=== PATIENT | male | born 1955 | race Caucasian/White ===

== ENCOUNTER 2019-11-08 15:40 | Emergency (ER) | payer BC ==
--- NOTE | 2019-11-08 15:55 | EDM.PDOC ---
ED HPI GENERAL MEDICAL PROBLEM - General Chief Complaint: Lower Extremity Injury/Pain Stated Complaint: RIGHT KNEE INJURY Time Seen by Provider: 11/08/19 15:48 Source of Information: Reports: Patient, EMS History Limitations: Reports: No Limitations - History of Present Illness INITIAL COMMENTS - FREE TEXT/NARRATIVE: 64 YO WM presents to ER complaining right leg pain after slip and fall down 2 stairs. Pt reports his right leg went forward causing his knee to buckle. Pt reports landing on the ground but denies back pain or head injury. Pt reports no pain in left lower extremity. Pt was able to stand with assistance once the ambulance arrived. Pt denies neck/back discomfort, no pelvic pain, no chest or abdominal pain . Onset: Today Location: Reports: Lower Extremity, Right Quality: Reports: Ache Severity: Moderate Improves with: Reports: Rest Worsens with: Reports: Movement Associated Symptoms: Reports: No Other Symptoms Treatments [employer]GER: Reports: Splint(s) right leg Pain Score (Numeric/FACES): 2 - Related Data Allergies Allergy/AdvReac Type Severity Reaction Status Date / Time atorvastatin [From Lipitor] Allergy Drowsiness Verified 11/08/19 16:25 Review of Systems - Review of Systems Review Of Systems: See Below Constitutional: Reports: No Symptoms Eyes: Reports: No Symptoms Ears: Reports: No Symptoms Nose: Reports: No Symptoms Mouth/Throat: Reports: No Symptoms Respiratory: Reports: No Symptoms Cardiovascular: Reports: No Symptoms GI/Abdominal: Reports: No Symptoms Genitourinary: Reports: No Symptoms Musculoskeletal: Reports: Leg Pain Skin: Reports: No Symptoms Neurological: Reports: No Symptoms Psychiatric: Reports: No Symptoms ED EXAM, GENERAL - Physical Exam Exam: See Below Exam Limited By: No Limitations General Appearance: Alert, WD/WN, No Apparent Distress Eye Exam: Bilateral Eye: PERRL Head: Atraumatic, Normocephalic Neck: Normal Inspection, Supple, Non-Tender, Full Range of Motion Respiratory/Chest: No Respiratory Distress, Lungs Clear, Normal Breath Sounds, No Accessory Muscle Use, Chest Non-Tender Cardiovascular: Normal Peripheral Pulses, Regular Rate, Rhythm, No Edema, No Gallop, No JVD, No Murmur, No Rub GI/Abdominal: Normal Bowel Sounds, Soft, Non-Tender, No Organomegaly, No Distention, No Abnormal Bruit, No Mass Back Exam: Normal Inspection, Full Range of Motion, NT Extremities: Normal Capillary Refill, Leg Pain (Right distal femur pain without deformity. pain with AROM/PROM of right knee) Neurological: Alert, Oriented, CN II-XII Intact, Normal Cognition, Normal Gait, Normal Reflexes, No Motor/Sensory Deficits Psychiatric: Normal Affect, Normal Mood Skin Exam: Warm, Dry, Intact, Normal Color, No Rash Lymphatic: No Adenopathy ED TRAUMA EXTREMITY PROCEDURES - Splinting Right Lower Extremity Splint Site: right knee Pre-Procedure NV Status: Normal Post-Procedure NV Status: Normal Splint Material: Velcro Splint Design: Knee Immobilizer Applied & Form Fitted By: Provider Provider Post-Splint Application NV Check: NV Status Normal, Good Position Complications: No Course - Vital Signs Last Recorded V/S: Last Vital Signs Temp 36.4 C 11/08/19 15:45 Pulse 80 11/08/19 15:45 Resp 18 11/08/19 15:45 BP 143/56 H 11/08/19 15:45 Pulse Ox 95 11/08/19 15:45 - Orders/Labs/Meds Orders: Active Orders 24 hr Category Date Time Status Femur Min 2V Rt [CR] Stat Exams 11/08/19 15:52 Ordered - Radiology Interpretation Free Text/Narrative:: right femur- NAD Right knee- joint effusion with possible suprepatellar avulsion fracture vs osteochondral bodies Departure - Departure Time of Disposition: 17:13 Disposition: Home, Self-Care 01 Condition: Good Clinical Impression: Effusion, right knee - Discharge Information Instructions: Knee Effusion, [id number], Crutch Use, Adult, [id number] Referrals: Bernie Lan MD [Primary Care Provider] - Forms: ED Department Discharge Additional Instructions: 1. discharge home 2. recommend MRI of right knee after ortho evaluation 3. rest/ice/elevation/crutches 4. Motrin 600mg every 6 hours x 5 days 5. return to ER for worsening symptoms Sepsis Event Note - Focused Exam Vital Signs: Vital Signs Temp Pulse Resp BP Pulse Ox 11/08/19 15:45 36.4 C 80 18 143/56 H 95 Date Exam was Performed: 11/08/19 Time Exam was Performed: 17:09 - My Orders Last 24 Hours: My Active Orders 11/08/19 15:52 Femur Min 2V Rt [CR] Stat - Assessment/Plan Last 24 Hours: My Active Orders 11/08/19 15:52 Femur Min 2V Rt [CR] Stat Assessment:: 1. right knee effusion 2. possible suprapatellar avulsion fracture Plan: 1. discharge home 2. recommend MRI of right knee after ortho evaluation 3. rest/ice/elevation/crutches 4. Motrin 600mg every 6 hours x 5 days 5. return to ER for worsening symptoms
--- NOTE | 2019-11-08 17:00 | CR ---
[id number] RAD/RAD Knee Right 3V; [id number] RAD/RAD Femur Right 2V Exam: RAD Femur Right 2V, RAD Knee Right 3V Indication:PAIN. Comparison: No prior imaging for comparison. Discussion: Femur is intact. No lesion identified in the femur. Femoroacetabular articulation demonstrates changes of osteoporosis. Evaluation of the knee joint demonstrates a small joint effusion. Mild changes of osteoarthritis in the patellofemoral compartment. Lateral view demonstrates 2 closely approximated mineralized structures in the suprapatellar recess of the knee joint measuring 8 and 4 mm. Findings are nonspecific and possibly either intra-articular osteochondral bodies in the setting of osteoarthritis versus acutely avulsed fracture fragments secondary to quadriceps tendon injury. Correlate with site of pain. Additionally, there is thickening of the prepatellar and superficial infrapatellar soft tissues which can be seen with contusion in the setting of fall. Impression: Intact femur. Prepatellar and superficial infrapatellar soft tissue thickening, likely contusion in the setting of fall with a joint effusion and other findings described above. Ángel Black MD 11/08/19 [id number] Thank you for allowing us to participate in the care of your patient.
[2019-11-08] MEDS ORDERED: Ketorolac 60 MG/2 ML SDV IM ONE (17:15)
== END 2019-11-08 18:00 | disposition home or self-care (01) ==
LOC: KA.ED 15:40
DX: M25.461 Effusion, right knee (principal); Z88.8 Allergy status to other drugs, medicaments and biological substances; W10.9XXA Fall (on) (from) unspecified stairs and steps, initial encounter
CPT/HCPCS: 73562-RT; 82962; 96372; 99283-25; J1885

== ENCOUNTER 2020-02-18 05:08 | Emergency (ER) | payer BC ==
[2020-02-18] MEDS: Ondansetron 4 MG/2 ML SDV IVPUSH ONE (05:43)
--- NOTE | 2020-02-18 06:08 | EDM.PDOC ---
ED HPI GENERAL MEDICAL PROBLEM - General Chief Complaint: General Stated Complaint: RUQ Time Seen by Provider: 02/18/20 05:30 Source of Information: Reports: Patient History Limitations: Reports: No Limitations - History of Present Illness INITIAL COMMENTS - FREE TEXT/NARRATIVE: 64-year-old white male presents emergency room with complaints of right upper quadrant pain. His symptoms began yesterday at approximately 8 AM and have been consistent over the last 24 hours. He describes the pain as a ache with waxing and waning type symptoms but been constant for the last a day. He's been experiencing some nausea no vomiting. He notices that it's painful to touch in right upper quadrant and has a little bit of rib pain to his right side. He denies significant flank pain. He has had a kidney stone in the past and feels that this is different. He did denies colicky type pain. He is not had a bowel movement last 48 hours. Food does not seem to change his symptoms. He still has his gallbladder but has had an appendectomy about 15 years ago. He is diabetic. He has no chest pain shortness of breath, no pleuritic pain. No cough. No fever or chills. Onset: Gradual Onset Date: 02/17/20 Onset Time: 08:00 Duration: Hour(s): Location: Reports: Abdomen Quality: Reports: Ache Severity: Moderate Improves with: Reports: None Worsens with: Reports: None Associated Symptoms: Reports: Nausea/Vomiting (nausea). Denies: Chest Pain, Diaphoresis, Fever/Chills, Shortness of Breath, Weakness Right Upper Abdomen Pain Score (Numeric/FACES): 7 - Related Data Allergies Allergy/AdvReac Type Severity Reaction Status Date / Time atorvastatin [From Lipitor] AdvReac Drowsiness Verified 02/18/20 06:17 Home Meds: Home Meds Citalopram [Citalopram HBr] 20 mg PO DAILY 11/08/19 [History] Insulin Aspart [NovoLOG] 0 unit SUBCUT WITHMEALSANDBED 11/08/19 [History] amLODIPine [Norvasc] 10 mg PO BID 11/08/19 [History] metFORMIN [Glucophage XR] 1,000 mg PO BIDMEALS 11/08/19 [History] Furosemide 20 mg PO QAM 02/18/20 [History] Insulin Degludec [Tresiba Flextouch U-200] 70 units SQ BEDTIME 02/18/20 [History ] Lisinopril/Hydrochlorothiazide [Lisinopril-Hctz 20-25 mg Tab] 2 tab PO QAM 02/17 [History] Ozempic 1 injection SQ WEEKLY 02/18/20 [History] Tamsulosin [Flomax] 0.4 mg PO BEDTIME #14 cap.er 02/18/20 [Rx] allopurinoL [Zyloprim] 100 mg PO DAILY 02/18/20 [History] valACYclovir HCl [valACYclovir] 1 tab PO ASDIRECTED PRN 02/18/20 [History] Past Medical History Cardiovascular History: Reports: Hypertension Psychiatric History: Reports: Depression Endocrine/Metabolic History: Reports: Diabetes, Type II, IDDM, Obesity/BMI 30+ - Past Surgical History GI Surgical History: Reports: Appendectomy Musculoskeletal Surgical History: Reports: Hip Replacement, Shoulder Surgery Social & Family History - Family History Family Medical History: Noncontributory ED ROS GENERAL - Review of Systems Review Of Systems: Comprehensive ROS is negative, except as noted in HPI. ED EXAM, GENERAL - Physical Exam Exam: See Below Exam Limited By: No Limitations General Appearance: Alert, No Apparent Distress, Obese Ears: Hearing Grossly Normal Nose: Normal Inspection Throat/Mouth: Normal Inspection, Normal Voice, No Airway Compromise Head: Atraumatic, Normocephalic Neck: Normal Inspection Respiratory/Chest: No Respiratory Distress, Lungs Clear, Normal Breath Sounds Cardiovascular: Normal Peripheral Pulses, Regular Rate, Rhythm GI/Abdominal: Normal Bowel Sounds, Soft, Tender (Upper quadrant pain to palpation), Other (Abdomen is obese). No: Distended, Guarding, Rebound Back Exam: Normal Inspection, CVA Tenderness (R). No: CVA Tenderness (L), Paraspinal Tenderness, Vertebral Tenderness Extremities: Normal Inspection, Normal Range of Motion Neurological: Alert, Oriented, No Motor/Sensory Deficits Psychiatric: Normal Affect, Normal Mood Skin Exam: Warm, Dry, Intact, Normal Color, No Rash Lymphatic: No Adenopathy Course - Vital Signs Last Recorded V/S: Last Vital Signs Temp 98.9 F 02/18/20 05:45 Pulse 69 02/18/20 05:45 Resp 16 02/18/20 05:45 BP 147/53 H 05/07/20 05:45 Pulse Ox 94 L 02/18/20 05:45 - Orders/Labs/Meds Orders: Active Orders 24 hr Category Date Time Status Sodium Chloride 0.9% [Normal Saline] 50 ml Med 02/18/20 07:30 Active IV ASDIRECTED Medication Orders Sodium Chloride (Normal Saline) 50 mls @ 200 mls/hr IV ASDIRECTED [facility] Last Admin: 02/18/20 07:33 Dose: 200 mls/hr Labs: Laboratory Tests 02/18/20 02/18/20 02/18/20 Range/Units 06:15 06:15 09:20 WBC 10.11 H (5.00-10.00) 10^3/uL RBC 4.85 (4.50-6.00) 10^6/uL Hgb 15.2 (13.0-17.0) g/dL Hct 43.7 (40.0-52.0) % MCV 90.1 (82.0-92.0) fL MCH 31.3 H (27.0-31.0) pg MCHC 34.8 (32.0-36.0) g/dL RDW 13.8 (11.5-14.5) % Plt Count 213 (150-400) 10^3/uL MPV 9.5 (7.4-10.4) fL Immature Gran % (Auto) 0.1 (0.0-5.0) % Neut % (Auto) 78.7 H (50.0-70.0) % Lymph % (Auto) 7.7 L (20.0-40.0) % Pike % (Auto) 13.1 H (2.0-8.0) % Eos % (Auto) 0.2 L (1.0-3.0) % Baso % (Auto) 0.2 (0.0-1.0) % Neut # (Auto) 7.96 H (2.50-7.00) 10^3/uL Lymph # (Auto) 0.78 L (1.00-4.00) 10^3/uL Pike # (Auto) 1.32 H (0.10-0.80) 10^3/uL Eos # (Auto) 0.02 L (0.10-0.30) 10^3/uL Baso # (Auto) 0.02 (0.00-0.10) 10^3/uL Immature Gran # (Auto) 0.01 (0.00-0.50) 10^3/uL Sodium 140 (136-145) mmol/L Potassium 3.2 L (3.3-5.3) mmol/L Chloride 104 (98-115) mmol/L Carbon Dioxide 25.4 (21.0-32.0) mmol/L Anion Gap 13.8 (5-15) mmol/L BUN 30 H (6-25) mg/dL Creatinine 1.16 (0.51-1.17) mg/dL Est Cr Clr Drug Dosing 70.61 mL/min Estimated GFR (MDRD) > 60 mL/min Glucose 171 H (75 - 99) mg/dL Calcium 9.1 (8.7-10.3) mg/dL Total Bilirubin 0.8 (0.2-1.0) mg/dL AST 12 L (15-37) U/L ALT 29 (12-78) U/L Alkaline Phosphatase 66 (46-116) IU/L Total Protein 6.7 (6.4-8.2) g/dL Albumin 3.67 (3.00-4.80) g/dL Amylase 31 (25-125) U/L Lipase 67 L (73-393) U/L Specimen Type Urincc Urine Color Yellow (YELLOW) Urine Appearance Clear (CLEAR) Urine pH 5.5 (5.0-9.0) Ur Specific [place] 1.020 (1.005-1.030) Urine Protein Negative (NEGATIVE) mg/dL Urine Glucose (UA) Negative (NEGATIVE) mg/dL Urine Ketones Negative (NEGATIVE) mg/dL Urine Occult Blood Small H (NEGATIVE) Urine Nitrite Negative (NEGATIVE) Urine Bilirubin Negative (NEGATIVE) Urine Urobilinogen 0.2 (0.2-1.0) E.U./dL Ur Leukocyte Esterase Negative (NEGATIVE) Urine RBC 10-20 H (0-5) /HPF Urine WBC 0-5 (0-5) /HPF Ur Epithelial Cells Occasional /LPF Urine Bacteria Rare (NONE TO FEW) /HPF Meds: Medications Generic Name Dose Route Start Last Admin Trade Name Freq PRN Reason Stop Dose Admin Sodium Chloride 50 mls @ 200 mls/hr 02/18/20 07:30 02/18/20 07:33 Normal Saline IV 200 mls/hr ASDIRECTED [facility] Administration Discontinued Medications Generic Name Dose Route Start Last Admin Trade Name Mayda PRN Reason Stop Dose Admin Hydromorphone HCl 1 mg 02/18/20 07:39 02/18/20 07:49 Dilaudid IVPUSH 02/18/20 07:40 1 mg ONETIME ONE Administration Iopamidol 100 ml 02/18/20 07:26 02/18/20 07:33 Isovue-370 (76%) IV 02/18/20 07:27 100 ml ONETIME ONE Administration Ondansetron HCl 4 mg 02/18/20 05:38 02/18/20 05:43 Zofran IVPUSH 02/18/20 05:39 4 mg ONETIME ONE Administration Tamsulosin HCl 0.4 mg 02/18/20 09:06 02/18/20 09:29 Flomax PO 02/18/20 09:07 0.4 mg ONETIME ONE Administration - Radiology Interpretation Free Text/Narrative:: CT abdomen pelvis with IV contrast Findings: Bases are clear. Liver, spleen, gallbladder, pancreas, adrenal glands are unremarkable 7 x 8 mm obstructing right urethral calculus at the UPJ with moderate upstream hydronephrosis, delayed nephrogram, and renal edema. Numerous additional nonobstructing right renal calculi measuring up to 3-4 mm There are possible superimposed sinus cyst in the right kidney as well. Small sinus cyst in the left kidney. No left urinary tract obstruction. No bowel obstruction or inflammation. No lymphadenopathy in the abdomen or pelvis. No free fluid or fluid collections. No pneumoperitoneum. Tiny sliding type hiatus hernia. Severe and asymmetric atrophy of the right rectus abdominis musculature. Left rectus musculature remains intact. Impression: 8 x 7 mm obstructing right proximal ureteral calculus at the UPJ with moderate upstream hydroureter nephrolysis other findings consistent with urinary tract obstruction. - Re-Assessments/Exams Free Text/Narrative Re-Assessment/Exam: 02/18/20 06:14 IV was placed in his right arm. He was given 4 mg of IV Zofran. Patient reports his nausea is improved. Lab work was drawn and CT with IV contrast is pending awaiting BUN/creatinine creatinine. 02/18/20 06:49 Pain upon arrival was 7/10, reports the pain is now a 3 or 4 out of 10. He is feeling better and resting. 05/07/20 09:14 She now reports that his pain has improved once again with 1 mg of Dilaudid IV. I reviewed the CT findings with the nonobstructing right ureteral calculus at the UPJ with the patient and Dr. Barber urologist. Patient was started on Flomax 0.4 mg. UA is currently pending. Departure - Departure Time of Disposition: 10:00 Disposition: Home, Self-Care 01 Condition: Good Clinical Impression: Right ureteral calculus - Discharge Information Prescriptions: Tamsulosin [Flomax] 0.4 mg PO BEDTIME #14 cap.er Instructions: Ureteroscopy Referrals: Bernie Lan MD [Primary Care Provider] - Forms: ED Department Discharge Sepsis Event Note - Focused Exam Vital Signs: Vital Signs Temp Pulse Resp BP Pulse Ox 02/18/20 05:45 98.9 F 69 16 147/53 H 94 L Date Exam was Performed: 02/18/20 Time Exam was Performed: 09:58 - My Orders Last 24 Hours: My Active Orders 02/18/20 07:30 Sodium Chloride 0.9% [Normal Saline] 50 ml IV ASDIRECTED - Assessment/Plan Last 24 Hours: My Active Orders 02/18/20 07:30 Sodium Chloride 0.9% [Normal Saline] 50 ml IV ASDIRECTED Assessment:: Obstructing proximal right ureteral calculus at the UPJ Plan: 1. Discussed findings from CT abdomen pelvis for nonobstructing right proximal ureteral calculus at the UPJ with Dr. Barber, urologist. 2. Flomax 0.4 mg daily 3. Follow-up with urology for removal of obstructing calculus, patient will be seen tomorrow at 8:30 AM.
[2020-02-18 06:43] LABS: ANION GAP 13.8 mmol/L (5-15); CHLORIDE,CL 104 mmol/L (98-115); SODIUM,NA 140 mmol/L (136-145)
[2020-02-18] MEDS: Iopamidol 755 Mg/ML 100 ML Bottle IV ONE (07:33)
[2020-02-18] MEDS: Sodium Chloride 0.9% 50 ML IV SCH (07:33)
[2020-02-18] MEDS: HYDROmorphone 1 MG/ML Syringe IVPUSH ONE (07:49)
--- NOTE | 2020-02-18 08:06 | CT ---
[id number] CT/CT Abdomen Pelvis W IV EXAM: CT Abdomen Pelvis W IV CLINICAL DATA: RUQ PAIN. COMPARISON STUDY: None. FINDINGS: Lung bases are clear. Liver, spleen, gallbladder, pancreas, and adrenal glands are unremarkable. 7 x 8 mm obstructing proximal right ureteral calculus at the UPJ with moderate upstream hydronephrosis, delayed nephrogram, and renal edema. Numerous additional nonobstructing right renal calculi measuring up to 3 to 4 mm. There are possible superimposed sinus cysts in the right kidney as well. Small sinus cysts in the left kidney. No left urinary tract obstruction. No bowel obstruction or inflammation. No lymphadenopathy in the abdomen or pelvis. No free fluid or fluid collections. No pneumoperitoneum. Tiny sliding-type hiatus hernia. Severe and asymmetric atrophy of the right rectus abdominis musculature. Left rectus musculature remains intact. IMPRESSION: 8 x 7 mm obstructing proximal right ureteral calculus at the UPJ with moderate upstream hydronephrosis other findings consistent with urinary tract obstruction. Ángel Black MD 02/18/20 0805 Thank you for allowing us to participate in the care of your patient.
[2020-02-18] MEDS: Tamsulosin 0.4 MG Cap.ER PO ONE (09:29)
== END 2020-02-18 10:10 | disposition home or self-care (01) ==
LOC: KA.ED 05:08
DX: N13.2 Hydronephrosis with renal and ureteral calculous obstruction (principal); F32.9 Major depressive disorder, single episode, unspecified; I10 Essential (primary) hypertension; E11.9 Type 2 diabetes mellitus without complications; Z79.4 Long term (current) use of insulin; E66.9 Obesity, unspecified; Z68.41 Body mass index [BMI] 40.0-44.9, adult; Z88.8 Allergy status to other drugs, medicaments and biological substances
CPT/HCPCS: 36415; 74177; 80053; 81001; 82150; 83690; 85025; 96374; 96375; 99284-25; A9270-GY; J1170; J2405; J7050; Q9967

== ENCOUNTER 2020-03-28 04:14 | Emergency (ER) | payer BC ==
--- NOTE | 2020-03-28 04:39 | EDM.PDOC ---
ED HPI GENERAL MEDICAL PROBLEM - General Chief Complaint: Abdominal Pain Stated Complaint: ABDOMINAL PAIN Time Seen by Provider: 03/28/20 04:39 Source of Information: Reports: Patient History Limitations: Reports: No Limitations - History of Present Illness INITIAL COMMENTS - FREE TEXT/NARRATIVE: States no bowel movement for the past 6+ days. "Feels like I could explode." Has used his home oral Dulcolax, as well as suppositories which always worked in the past. States issues with constipation started developing after he had his knee repaired in October but got them fairly well under control. Recent laser treatment for renal lithiasis seemed to instigate worsening constipation again thereafter. Has not had any issues with urination problems, stating he passed 1 stone since the procedure. He is aware there were still stones present in his right kidney. He has had numerous abdominal surgeries including 5 hernias repaired as well as appendectomy. Denies any change in dietary intake that would promote constipation has been maintaining fluid intake. At time of CT, recalls leaning over the edge of his boat the day prior to constipation starting, but denies any noted injury, just pressure from the rail pushing on abdomen. Onset: Gradual Onset Date: 03/22/20 Duration: Day(s):, Getting Worse Location: Reports: Abdomen Quality: Reports: Pressure, Sharp Severity: Severe Improves with: Reports: None Worsens with: Reports: Eating Associated Symptoms: Reports: Loss of Appetite, Nausea/Vomiting. Denies: Fever/ Chills Treatments MOLD CHIPPER: Reports: Other Medication(s) (Bowel therapy for constipation including suppository) Abdominal Pain Score (Numeric/FACES): 8 - Related Data Allergies Allergy/AdvReac Type Severity Reaction Status Date / Time atorvastatin [From Lipitor] AdvReac Drowsiness Verified 03/28/20 04:26 Home Meds: Home Meds Citalopram [Citalopram HBr] 20 mg PO DAILY 11/08/19 [History] Insulin Aspart [NovoLOG] 0 unit SUBCUT WITHMEALSANDBED 11/08/19 [History] amLODIPine [Norvasc] 10 mg PO DAILY 11/08/19 [History] metFORMIN [Glucophage XR] 1,000 mg PO BIDMEALS 11/08/19 [History] Furosemide 20 mg PO QAM 02/18/20 [History] Insulin Degludec [Tresiba Flextouch U-200] 70 units SQ BEDTIME 02/18/20 [History ] Lisinopril/Hydrochlorothiazide [Lisinopril-Hctz 20-25 mg Tab] 2 tab PO QAM 02/17 [History] Ozempic 1 injection SQ ISLAS 02/18/20 [History] Tamsulosin [Flomax] 0.4 mg PO BEDTIME #14 cap.er 02/18/20 [Rx] allopurinoL [Zyloprim] 100 mg PO DAILY 02/18/20 [History] valACYclovir HCl [valACYclovir] 1 tab PO ASDIRECTED PRN 02/18/20 [History] Past Medical History Cardiovascular History: Reports: Hypertension Musculoskeletal History: Reports: Back Pain, Chronic Psychiatric History: Reports: Depression Endocrine/Metabolic History: Reports: Diabetes, Type II, IDDM, Obesity/BMI 30+ - Past Surgical History GI Surgical History: Reports: Appendectomy, Hernia, Abdominal, Hernia, Inguinal , Hernia Repair/Other Male Surgical History: Reports: Renal Calculus Neurological Surgical History: Reports: Lumbar Spine Musculoskeletal Surgical History: Reports: Arthroscopic Knee, Hip Replacement, Shoulder Surgery Social & Family History - Family History Family Medical History: Noncontributory - Tobacco Use Tobacco Use Within Last Twelve Months: No - Caffeine Use Caffeine Use: Reports: Coffee Caffeine Use Comment: coffee every other day ED ROS GENERAL - Review of Systems Review Of Systems: See Below Constitutional: Reports: Decreased Appetite HEENT: Reports: No Symptoms Respiratory: Reports: Shortness of Breath (Likely attributed to abdominal pressure) Cardiovascular: Reports: Edema (Has been fairly well controlled with diuretic) GI/Abdominal: Reports: Abdominal Pain, Constipation : Reports: No Symptoms Musculoskeletal: Reports: No Symptoms Skin: Reports: No Symptoms Neurological: Reports: No Symptoms Psychiatric: Reports: No Symptoms Hematologic/Lymphatic: Reports: No Symptoms Immunologic: Reports: No Symptoms ED EXAM, GENERAL - Physical Exam Exam: See Below General Appearance: Alert, WD/WN, No Apparent Distress Ears: Normal External Exam, Normal Canal, Hearing Grossly Normal, Normal TMs Nose: Normal Inspection, Normal Mucosa, No Blood Throat/Mouth: Normal Inspection, Normal Lips, Normal Teeth, Normal Gums, Normal Oropharynx, Normal Voice, No Airway Compromise Head: Atraumatic, Normocephalic Neck: Normal Inspection, Supple, Non-Tender, Full Range of Motion Respiratory/Chest: No Respiratory Distress, Lungs Clear, Normal Breath Sounds, No Accessory Muscle Use, Chest Non-Tender, Other (Limited inhalation secondary abdominal pressure. Deep breathing causes increased abdominal pressure) Cardiovascular: Normal Peripheral Pulses, Regular Rate, Rhythm, No Edema, No Gallop, No JVD, No Murmur, No Rub GI/Abdominal: Distended, Rigid, Tender, Abnormal Bowel Sounds (Male) Exam: Deferred Rectal (Males) Exam: Deferred Back Exam: Full Range of Motion, Other (lumbar scar) Extremities: Normal Inspection, Normal Range of Motion, Non-Tender, No Pedal Edema Neurological: Alert, Oriented, CN II-XII Intact, Normal Cognition, Normal Gait, Normal Reflexes, No Motor/Sensory Deficits Psychiatric: Normal Affect, Normal Mood Skin Exam: Warm, Dry, Intact, Normal Color, No Rash Lymphatic: No Adenopathy Course - Vital Signs Text/Narrative:: Has rested very comfortable since administration of Zofran and 1 mg Dilaudid. Desatted while he was sleeping, placed oxygen supplemental nasal cannula and has maintained saturations in low to mid 90% range since then. Last Recorded V/S: Last Vital Signs Temp 36.9 C 03/28/20 07:04 Pulse 62 03/28/20 07:04 Resp 20 03/28/20 07:04 BP 117/56 L 03/28/20 07:04 Pulse Ox 96 03/28/20 07:04 - Orders/Labs/Meds Orders: Active Orders 24 hr Category Date Time Status Enema [RC] ASDIRECTED Care 03/28/20 07:13 Ordered Peripheral IV Care [RC] . DIRECTED Care 03/28/20 04:49 Ordered Sodium Chloride 0.9% [Normal Saline] 1,000 ml Med 03/28/20 05:00 Ordered IV ASDIRECTED Sodium Chloride 0.9% [Normal Saline] 50 ml Med 03/28/20 08:30 Active IV ASDIRECTED Sodium Chloride 0.9% [Saline Flush] Med 03/28/20 04:49 Ordered 10 ml FLUSH Q8HR PRN Peripheral IV Insertion Adult [OM.PC] Routine Oth 03/28/20 04:49 Ordered Medication Orders Sodium Chloride (Normal Saline) 1,000 mls @ 500 mls/hr IV ASDIRECTED OMID Last Admin: 03/28/20 04:55 Dose: 500 mls/hr Sodium Chloride (Normal Saline) 50 mls @ 200 mls/min IV ASDIRECTED OMID Last Admin: 03/28/20 08:39 Dose: 200 mls/min Sodium Chloride (Saline Flush) 10 ml FLUSH Q8HR PRN PRN Reason: keep vein open Last Admin: 03/28/20 04:35 Dose: 10 ml Labs: Laboratory Tests 03/28/20 03/28/20 03/28/20 Range/Units 04:35 04:35 04:35 WBC 9.53 (5.00-10.00) 10^3/uL RBC 4.81 (4.50-6.00) 10^6/uL Hgb 14.7 (13.0-17.0) g/dL Hct 43.2 (40.0-52.0) % MCV 89.8 (82.0-92.0) fL MCH 30.6 (27.0-31.0) pg MCHC 34.0 (32.0-36.0) g/dL RDW 12.9 (11.5-14.5) % Plt Count 186 (150-400) 10^3/uL MPV 10.1 (7.4-10.4) fL Immature Gran % (Auto) 0.3 (0.0-5.0) % Neut % (Auto) 76.7 H (50.0-70.0) % Lymph % (Auto) 9.2 L (20.0-40.0) % Beauregard % (Auto) 13.4 H (2.0-8.0) % Eos % (Auto) 0.3 L (1.0-3.0) % Baso % (Auto) 0.1 (0.0-1.0) % Neut # (Auto) 7.30 H (2.50-7.00) 10^3/uL Lymph # (Auto) 0.88 L (1.00-4.00) 10^3/uL Beauregard # (Auto) 1.28 H (0.10-0.80) 10^3/uL Eos # (Auto) 0.03 L (0.10-0.30) 10^3/uL Baso # (Auto) 0.01 (0.00-0.10) 10^3/uL Immature Gran # (Auto) 0.03 (0.00-0.50) 10^3/uL Sodium 137 (136-145) mmol/L Potassium 3.8 (3.3-5.3) mmol/L Chloride 99 (98-115) mmol/L Carbon Dioxide 26.8 (21.0-32.0) mmol/L Anion Gap 15.0 (5-15) mmol/L BUN 35 H (6-25) mg/dL Creatinine 1.29 H (0.51-1.17) mg/dL Est Cr Clr Drug Dosing 63.50 mL/min Estimated GFR (MDRD) 56 mL/min Glucose 141 H (75 - 99) mg/dL Lactic Acid 1.7 (0.4-2.0) mmol/L Calcium 9.1 (8.7-10.3) mg/dL Total Bilirubin 0.7 (0.2-1.0) mg/dL AST 74 H (15-37) U/L ALT 106 H (12-78) U/L Alkaline Phosphatase 241 H (46-116) IU/L Total Protein 7.0 (6.4-8.2) g/dL Albumin 3.17 (3.00-4.80) g/dL Amylase 30 (25-125) U/L Lipase 80 (73-393) U/L Specimen Type Urine Color (YELLOW) Urine Appearance (CLEAR) Urine pH (5.0-9.0) Ur Specific Hewitt (1.005-1.030) Urine Protein (NEGATIVE) mg/dL Urine Glucose (UA) (NEGATIVE) mg/dL Urine Ketones (NEGATIVE) mg/dL Urine Occult Blood (NEGATIVE) Urine Nitrite (NEGATIVE) Urine Bilirubin (NEGATIVE) Urine Urobilinogen (0.2-1.0) E.U./dL Ur Leukocyte Esterase (NEGATIVE) 03/28/20 Range/Units 05:25 WBC (5.00-10.00) 10^3/uL RBC (4.50-6.00) 10^6/uL Hgb (13.0-17.0) g/dL Hct (40.0-52.0) % MCV (82.0-92.0) fL MCH (27.0-31.0) pg MCHC (32.0-36.0) g/dL RDW (11.5-14.5) % Plt Count (150-400) 10^3/uL MPV (7.4-10.4) fL Immature Gran % (Auto) (0.0-5.0) % Neut % (Auto) (50.0-70.0) % Lymph % (Auto) (20.0-40.0) % Beauregard % (Auto) (2.0-8.0) % Eos % (Auto) (1.0-3.0) % Baso % (Auto) (0.0-1.0) % Neut # (Auto) (2.50-7.00) 10^3/uL Lymph # (Auto) (1.00-4.00) 10^3/uL Beauregard # (Auto) (0.10-0.80) 10^3/uL Eos # (Auto) (0.10-0.30) 10^3/uL Baso # (Auto) (0.00-0.10) 10^3/uL Immature Gran # (Auto) (0.00-0.50) 10^3/uL Sodium (136-145) mmol/L Potassium (3.3-5.3) mmol/L Chloride (98-115) mmol/L Carbon Dioxide (21.0-32.0) mmol/L Anion Gap (5-15) mmol/L BUN (6-25) mg/dL Creatinine (0.51-1.17) mg/dL Est Cr Clr Drug Dosing mL/min Estimated GFR (MDRD) mL/min Glucose (75 - 99) mg/dL Lactic Acid (0.4-2.0) mmol/L Calcium (8.7-10.3) mg/dL Total Bilirubin (0.2-1.0) mg/dL AST (15-37) U/L ALT (12-78) U/L Alkaline Phosphatase (46-116) IU/L Total Protein (6.4-8.2) g/dL Albumin (3.00-4.80) g/dL Amylase (25-125) U/L Lipase (73-393) U/L Specimen Type Urine void Urine Color Yellow (YELLOW) Urine Appearance Clear (CLEAR) Urine pH 5.0 (5.0-9.0) Ur Specific Hewitt 1.010 (1.005-1.030) Urine Protein Negative (NEGATIVE) mg/dL Urine Glucose (UA) Negative (NEGATIVE) mg/dL Urine Ketones Negative (NEGATIVE) mg/dL Urine Occult Blood Negative (NEGATIVE) Urine Nitrite Negative (NEGATIVE) Urine Bilirubin Negative (NEGATIVE) Urine Urobilinogen 0.2 (0.2-1.0) E.U./dL Ur Leukocyte Esterase Negative (NEGATIVE) Meds: Medications Generic Name Dose Route Start Last Admin Trade Name Freq PRN Reason Stop Dose Admin Sodium Chloride 1,000 mls @ 500 mls/hr 03/28/20 05:00 03/28/20 04:55 Normal Saline IV 500 mls/hr ASDIRECTED OMID Administration Sodium Chloride 50 mls @ 200 mls/min 03/28/20 08:30 03/28/20 08:39 Normal Saline IV 200 mls/min ASDIRECTED OMID Administration Sodium Chloride 10 ml 03/28/20 04:49 03/28/20 04:35 Saline Flush FLUSH 10 ml Q8HR PRN Administration keep vein open Discontinued Medications Generic Name Dose Route Start Last Admin Trade Name Freq PRN Reason Stop Dose Admin Hydromorphone HCl 1 mg 03/28/20 04:53 03/28/20 05:02 Dilaudid IVPUSH 03/28/20 04:54 1 mg ONETIME ONE Administration Iopamidol 100 ml 03/28/20 08:26 03/28/20 08:36 Isovue-370 (76%) IV 03/28/20 08:27 100 ml ONETIME ONE Administration Ondansetron HCl 8 mg 03/28/20 04:53 03/28/20 04:57 Zofran IVPUSH 03/28/20 04:54 8 mg ONETIME ONE Administration - Radiology Interpretation Free Text/Narrative:: Large right ureteropelvic junction stone with marked right hydronephrosis. Gas present in the urinary bladder with bladder wall thickening noted. Questions gas-forming infectious organism. We will discuss this with urology at [facility] in [place] once clinic opens at 8 AM as they are not on-call at this time. We know he underwent treatment for lithiasis roughly 3 weeks ago. No mention of stool content is mentioned with stomach small bowel and large bowel unremarkable. [facility] second reading CT feels gas in bladder is secondary of recent instrumentation. No findings for mechanical obstruction we will discharge for his to transport. CT Results Date: 03/28/20 CT Results Time: 07:05 - Re-Assessments/Exams Free Text/Narrative Re-Assessment/Exam: 03/28/20 07:37 No active cardiopulmonary disease is demonstrated on 2 view chest x-ray. Free Text/Narrative Re-Assessment/Exam: 03/28/20 08:22 No stool was produced with soapsuds enema. Reassessment at this time reveals bowel sounds are now present, Rigoberto states he feels about the same as prior to the enema. Fullness with pressure. Advised he needs to be in [place] at 1:00 for 115 appointment with urology and he will contact his to pick him up here at the hospital and drive to [place] for the appointment. I advised him we are waiting for the second reading of the CT prior to discharge 03/28/20 08:55 With no significant findings on the over read/second reading of the CT we will discharge to the custody of his for transportation to [place]. He attempted, having the urge for bowel movement, stating he only passed watery content and was able to urinate. Departure - Departure Time of Disposition: 08:40 Disposition: Home, Self-Care 01 Condition: Fair Clinical Impression: Obstipation, Abdominal pain, Ureteropelvic junction (UPJ) obstruction, right - Discharge Information *PRESCRIPTION DRUG MONITORING PROGRAM REVIEWED*: Not Applicable *COPY OF PRESCRIPTION DRUG MONITORING REPORT IN PATIENT GAIL: Not Applicable Instructions: Constipation, Adult, [id number] Referrals: Bernie Lan MD [Primary Care Provider] - Forms: ED Department Discharge Additional Instructions: Do not take your Metformin for 48 hours. You may restart it on Saturday. Increase your fluid intake, predominately water. This will help flush the contrast used in the scan from your system, as well as aid in clearing of the constipation. You will need your to drive you to [place] to be at the clinic at 1:00 for registration for a 1:15 appointment in neurology. Nothing to eat or drink, sips of water only until you have been seen in the urology office. Do not use your insulin until you are able to eat, do not take your medications this morning. Bring all of your pills with you to your appointment including having your insulin available for use after the appointment if you are discharged home. If you are discharged from urology you may take your medications at that time, but do not take metformin until Saturday. In the event you are admitted to the facility for procedure, mention to them the issue with no bowel movement, and that we gave you an enema that did not provide good results. Follow-up with Dr. Gibbs in the next week, as needed, and as urology will provide further instructions. Sepsis Event Note (ED) - Evaluation Sepsis Screening Result: No Definite Risk - Focused Exam Vital Signs: Vital Signs Temp Pulse Resp BP Pulse Ox 03/28/20 07:04 36.9 C 62 20 117/56 L 96 03/28/20 04:19 36.3 C 78 18 140/44 L 92 L ED Communication - ED Communication Date/Time Date: 03/28/20 Time Called: 08:05 - Discussed Case With (1) Discussed Case With (1): Other Provider (Contact with urology at [facility] in [place]. Request Rigoberto to be there by 115 this afternoon. He is advised of this and will get his to pick him up and drive to the appointment. Will await [facility] reading of the CT prior to discharge, as enema produced no stool.) - Problem List & Annotations (1) Abdominal pain SNOMED Code(s): 48814646 Code(s): R10.9 - UNSPECIFIED ABDOMINAL PAIN Status: Acute Priority: High Current Visit: Yes Qualifiers: Abdominal location: generalized Qualified Code(s): R10.84 - Generalized abdominal pain (2) Obstipation SNOMED Code(s): 991108149 Code(s): K59.00 - CONSTIPATION, UNSPECIFIED Status: Acute Priority: High Current Visit: No (3) Nausea SNOMED Code(s): 320858713 Code(s): R11.0 - NAUSEA Status: Acute Priority: High Current Visit: No (4) Diabetes 1.5, managed as type 1 SNOMED Code(s): 940097952 Code(s): E13.9 - OTHER SPECIFIED DIABETES MELLITUS WITHOUT COMPLICATIONS Status: Chronic Priority: Medium Current Visit: No (5) Elevated liver enzymes SNOMED Code(s): 900606952 Code(s): R74.8 - ABNORMAL LEVELS OF OTHER SERUM ENZYMES Status: Acute Priority: High Current Visit: No (6) Ureteropelvic junction (UPJ) obstruction, right SNOMED Code(s): 15994028 Code(s): N13.5 - CROSSING VESSEL AND STRICTURE OF URETER W/O HYDRONEPHROSIS Status: Acute Priority: High Current Visit: Yes (7) Bladder wall thickening SNOMED Code(s): 003677050, 038876975 Code(s): N32.89 - OTHER SPECIFIED DISORDERS OF BLADDER Status: Chronic Priority: Medium Current Visit: No - Problem List Review Problem List Initiated/Reviewed/Updated: Yes - My Orders Last 24 Hours: My Active Orders 03/28/20 04:49 Peripheral IV Care [RC] . DIRECTED Sodium Chloride 0.9% [Saline Flush] 10 ml FLUSH Q8HR PRN Peripheral IV Insertion Adult [OM.PC] Routine 03/28/20 05:00 Sodium Chloride 0.9% [Normal Saline] 1,000 ml IV ASDIRECTED 03/28/20 07:13 Enema [RC] ASDIRECTED 03/28/20 08:30 Sodium Chloride 0.9% [Normal Saline] 50 ml IV ASDIRECTED - Assessment/Plan Last 24 Hours: My Active Orders 03/28/20 04:49 Peripheral IV Care [RC] . DIRECTED Sodium Chloride 0.9% [Saline Flush] 10 ml FLUSH Q8HR PRN Peripheral IV Insertion Adult [OM.PC] Routine 03/28/20 05:00 Sodium Chloride 0.9% [Normal Saline] 1,000 ml IV ASDIRECTED 03/28/20 07:13 Enema [RC] ASDIRECTED 03/28/20 08:30 Sodium Chloride 0.9% [Normal Saline] 50 ml IV ASDIRECTED Plan: Do not take your Metformin for 48 hours. You may restart it on Saturday. Increase your fluid intake, predominately water. This will help flush the contrast used in the scan from your system, as well as aid in clearing of the constipation. You will need your to drive you to [place] to be at the clinic at 1:00 for registration for a 1:15 appointment in neurology. Nothing to eat or drink, sips of water only until you have been seen in the urology office. Do not use your insulin until you are able to eat, do not take your medications this morning. Bring all of your pills with you to your appointment including having your insulin available for use after the appointment if you are discharged home. If you are discharged from urology you may take your medications at that time, but do not take metformin until Saturday. In the event you are admitted to the facility for procedure, mention to them the issue with no bowel movement, and that we gave you an enema that did not provide good results. Follow-up with Dr. Gibbs in the next week, as needed, and as urology will provide further instructions.
[2020-03-28] MEDS ORDERED: Sodium Chloride 0.9% 10 ML Syringe FLUSH PRN (04:49)
[2020-03-28] MEDS ORDERED: HYDROmorphone 1 MG/ML Syringe IVPUSH ONE (04:53)
[2020-03-28] MEDS ORDERED: Ondansetron 4 MG/2 ML SDV IVPUSH ONE (04:53)
[2020-03-28] MEDS ORDERED: Sodium Chloride 0.9% 1,000 ML IV SCH (05:00)
--- NOTE | 2020-03-28 08:02 | CR ---
[id number] RAD/RAD Chest PA And Lateral EXAM: RAD Chest PA And Lateral INDICATION: OBSTIPATION COMPARISON: October 03, 2018. DISCUSSION: Cardiomediastinal silhouette is stable in size and contour. No infiltrate, effusion, pneumothorax, or edema. IMPRESSION: No acute cardiopulmonary abnormality. Jose Isidro DO 03/28/20 0801 Thank you for allowing us to participate in the care of your patient.
--- NOTE | 2020-03-28 08:13 | CT ---
[id number] CT/CT Abdomen Pelvis W IV EXAM: CT Abdomen Pelvis W IV CLINICAL DATA: ABDOMINAL PAIN, OBSTIPATION COMPARISON STUDY: 02/18/2020. FINDINGS: Lung bases are clear. Liver, spleen, gallbladder, pancreas, and adrenal glands are unremarkable. Again identified is an 8 mm obstructing proximal right ureteral calculus at the UPJ with moderate upstream hydronephrosis, delayed nephrogram, and renal edema. Additional numerous nonobstructing 3 to 4 mm right renal calculi are no longer identified. No left renal calculi. There are possible superimposed peripelvic cysts in the right kidney as well. Small peripelvic cysts in the left kidney. No left urinary tract obstruction. There is some stranding within the pelvis adjacent to the ureters which is slightly increased when compared to the prior study. Air within the bladder likely related to recent instrumentation. No bowel obstruction or inflammation. No lymphadenopathy in the abdomen or pelvis. No free fluid or fluid collections. No pneumoperitoneum. Tiny sliding-type hiatal hernia. Severe and asymmetric atrophy of the right rectus abdominis musculature. Left rectus musculature remains intact. IMPRESSION: 1. Stable 8 mm obstructing proximal right ureteral calculus at the UPJ with associated moderate right hydronephrosis. Numerous smaller stones previously identified within the right kidney are no longer seen. 2. There is air within the urinary bladder and mild circumferential wall thickening. This is likely related to recent instrumentation. In the absence of recent instrumentation, findings are concerning for acute cystitis. Jose Isidro DO 03/28/20 0812 Thank you for allowing us to participate in the care of your patient.
[2020-03-28] MEDS ORDERED: Iopamidol 755 Mg/ML 100 ML Bottle IV ONE ×2 (08:26→08:31)
[2020-03-28] MEDS ORDERED: Sodium Chloride 0.9% 50 ML IV SCH (08:30)
== END 2020-03-28 08:50 | disposition home or self-care (01) ==
LOC: KA.ED 04:14
DX: N13.2 Hydronephrosis with renal and ureteral calculous obstruction (principal); K59.00 Constipation, unspecified; E11.9 Type 2 diabetes mellitus without complications; F32.9 Major depressive disorder, single episode, unspecified; I10 Essential (primary) hypertension; E66.9 Obesity, unspecified; Z68.41 Body mass index [BMI] 40.0-44.9, adult; Z88.8 Allergy status to other drugs, medicaments and biological substances; Z79.4 Long term (current) use of insulin; Z79.899 Other long term (current) drug therapy
CPT/HCPCS: 71046; 74177; 80053; 81003; 82150; 83605; 83690; 85025; 96361; 96374; 96375; 99284-25; J1170; J2405; J7030; J7050; Q9967